=== PATIENT | female | born 1985 | race Caucasian/White ===

== ENCOUNTER 2016-04-05 08:46 | Emergency (ER) | payer OTHER ==
[~2016-04-05 08:46] MED LIST: AMBI10TA; XANA0.5T; Zoloft
--- NOTE | 2016-04-05 10:12 | EDDOCDS ---
Nurse's Notes [facility] Name: Gladys Griffiths Age: 30 yrs Sex: Female : 1985 Arrival Date: 04/05/2016 Time: 08:46 Bed PR2 Private MD: Diagnosis: Chest pain, unspecified Presentation: 04/05 09:03 Presenting complaint: Patient states: SOB and chest pain intermittent over the past mlb1 year. Aspirin was not taken prior to arrival. Adult Sepsis Screening: The patient does not have new or worsening altered mentation. Patient's respiratory rate is less than 22. Systolic blood pressure is greater than 100. Patient has a qSOFA score of 0- Negative Sepsis Screen. Suicide/Homicide risk assessment- the patient denies having any suicidal and/or homicidal ideations and does not present with any other emotional, behavioral or mental health complaints. Status: The patient is a dependent. Transition of care: patient was not received from another setting of care. 09:03 Acuity: TERE Level 3 mlb1 09:03 Method Of Arrival: Walkin/Carried/Asstd mlb1 Triage Assessment: 09:10 General: Appears in no apparent distress, Behavior is appropriate for age, cooperative. mlb1 Pain: Location: anterior aspect of left upper chest Pain currently is 5 out of 10 on a pain scale. Pt Declines HIV testing. 10:10 Cardiovascular: Chest pain is denied is described as radiates Does not radiate. mlb1 episodes are intermittent began. 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 Singulair 10 mg Oral tab 1 tab once daily 2. aspirin 81 mg Oral tab 1 tab once daily 3. Valium 5 mg Oral tab daily as needed 4. albuterol sulfate 90 mcg/actuation Inhl HFAA 2 puffs every 4 hours 5. Flovent Diskus 250 mcg/actuation inhalation dsdv 1 puff 2 times per day - PMHx: Asthma; PTSD; - PSHx: ; ganglion cyst removal; vericose veins; - Social history: Smoking status: Patient states was never smoker of tobacco. No barriers to communication noted, The patient speaks fluent Cymro, Speaks appropriately for age. - Family history: Not pertinent. - : The pt / caregiver states he / she is not on anticoagulants. Home medication list is obtained from the patient. - Exposure Risk Screening:: None identified. Screenin:10 Screening information is obtained from the patient. Fall risk: No risks identified. mlb1 Assistance ADL's: requires no assistance with activities of daily living. Abuse/DV Screen: The patient / caregiver reports he/she is: not in a situation that causes fear, pain or injury. Nutritional screening: No deficits noted. Advance Directives: Currently, there is no health care proxy. home support is adequate. Assessment: 10:08 General: Appears in no apparent distress, comfortable, Behavior is appropriate for age, mlb1 cooperative. Pain: Location: anterior aspect of left upper chest Pain currently is 5 out of 10 on a pain scale. Respiratory: No deficits noted. GI: No deficits noted. Derm: Skin is pink, warm & dry. normal. 10:10 Cardiovascular: Rhythm is sinus bradycardia No ectopy. [facility] Vital Signs: 09:10 BP 122 / 71; Pulse 70; Resp 16; Temp 98.4(T); Pulse Ox 100% on R/A; Weight 61.23 kg mlb1 (R); Height 5 ft. 11 in. (180.34 cm) (R); Pain 5/10; 09:10 Body Mass Index 18.83 (61.23 kg, 180.34 cm) b1 ED Course: 08:49 Patient visited by Kelsey Sanchez. jls1 08:49 Patient moved to Waiting jls1 09:03 Patient visited by Timothy Fleming RN. mlb1 09:05 Triage Initiated mlb1 09:11 Patient moved to Triage 1 mlb1 09:16 Zeyad Toth PA-C is PHCP. cc10 09:16 Anil Bailey MD is Attending Physician. cc10 09:16 Patient visited by Zeyad Toth PA-C. cc10 09:16 Patient visited by Zeyad Toth PA-C. cc10 09:23 Patient moved to PR2 / jrd 09:39 Patient visited by Thierry Astudillo PCA. jrd 09:39 EKG done. (by ED staff). Reviewed by Zeyad Toth PA-C. jrd 09:57 Gomez Renteria is Referral Physician. cc10 10:10 No IV's were initiated during this patient's visit. No procedures done that require mlb1 assistance. 10:11 Patient visited by Timothy Fleming RN. mlb1 10:11 The patient / caregiver is instructed regarding the plan of care and ED course. Cardiac mlb1 monitoring not applicable on this patient. Point of Care Testing: Urine : 09:39 hCG Reading: Negative; Control Reading: Positive; jrd Ranges: Order Results: There are currently no results for this order. Outcome: 09:57 Discharge ordered by Provider. cc10 10:11 Discharge Assessment: Patient awake, alert and oriented x 3. No cognitive and/or mlb1 functional deficits noted. Patient verbalized understanding of disposition instructions. patient administered narcotics - no. The following High Risk Discharge criteria are identified: None. Discharged to home ambulatory. Condition: good. Discharge instructions given to patient, Instructed on discharge instructions, follow up and referral plans. Demonstrated understanding of instructions, medications, Pt was receptive of discharge instructions/ teaching. No special radiology studies were completed. Property sent home with patient. 10:11 Patient left the ED. mlb1 Signatures: Timothy Fleming, RN RN mlb1 Zeyad Toth, PA-C PA-C cc10 Thierry Astudillo, DEAN OF EDUCATION DEAN OF EDUCATION Kelsey Baldwins1 MTDD
--- NOTE | 2016-04-05 10:12 | EDDOCDS ---
Physician Documentation [facility] Name: Gladys Griffiths Age: 30 yrs Sex: Female : 1985 Arrival Date: 04/05/2016 Time: 08:46 Bed PR Private MD: Disposition: 04/05/16 09:57 Discharged to Home/Self Care. Impression: Chest pain, unspecified. - Condition is Stable. - Discharge Instructions: Nonspecific Chest Pain. - Medication Reconciliation form. - Follow up: Emergency Department; When: As needed; Reason: Worsening of conditions. Follow up: Gomez Renteria; When: Call to arrange an appointment; Reason: Wound/Symptom Recheck, Recheck today's complaints, Continuance of care. - Problem is chronic. - Symptoms are unchanged. Historical: - Allergies: PENICILLINS; Ciprofloxacin; Cleocin; Levaquin; Keflex; Erythromycin; hydrocodone; Prednisone; - Home Meds: 1. Singulair 10 mg Oral tab 1 tab once daily 2. aspirin 81 mg Oral tab 1 tab once daily 3. Valium 5 mg Oral tab daily as needed 4. albuterol sulfate 90 mcg/actuation Inhl HFAA 2 puffs every 4 hours 5. Flovent Diskus 250 mcg/actuation inhalation dsdv 1 puff 2 times per day - PMHx: Asthma; PTSD; - PSHx: ; ganglion cyst removal; vericose veins; - Social history: Smoking status: Patient states was never smoker of tobacco. No barriers to communication noted, The patient speaks fluent Macedonian, Speaks appropriately for age. - Family history: Not pertinent. - : The pt / caregiver states he / she is not on anticoagulants. Home medication list is obtained from the patient. - Exposure Risk Screening:: None identified. 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 11 in. (180.34 cm) (R); Pain 5/10; 09:10 Body Mass Index 18.83 (61.23 kg, 180.34 cm) mlb1 MDM: 09:23 UCG by Nursing ordered. cc10 09:24 ECG WITH READING ER PHYS+CARDIAG ordered. EDMS 09:24 Chest, 2 View (pa\E\lat): ucg pending Ordered. EDMS Point of Care Testing: Urine : 09:39 hCG Reading: Negative; Control Reading: Positive; jrd Ranges: Signatures: Dispatcher [employer] Timothy Garcia RN RN mlb1 Zeyad Toth, PA-C PA-C cc10 MTDD
--- NOTE | 2016-04-06 08:22 | ECGEPIP ---
Stationary ECG Study [facility] - ED Test Date: 2016-04-05 Pat Name: MICHAEL SMITH Department: Room: - Gender: F Family Medicine Physician: juan : 1985 Requested By: Zeyad Toth PA-C Order Number: [id number] Reading MD: Anil Bailey Measurements Intervals [place] Rate: 59 P: 45 [place]: 132 QRS: 64 QRSD: 84 T: 54 QT: 396 QTc: 394 Interpretive Statements SINUS BRADYCARDIA INC. RBBB BENIGN EARLY REPOLARIZATION NO PRIORS Electronically Signed On 04-06-2016 8:21:55 EST by Anil Bailey
--- NOTE | 2016-04-07 11:12 | EDDOCDS ---
Nurse's Notes [facility] Name: Michael Griffiths Age: 30 yrs Sex: Female : 1985 Arrival Date: 04/05/2016 Time: 08:46 Bed PR2 Private MD: Diagnosis: Chest pain, unspecified Presentation: 04/05 09:03 Presenting complaint: Patient states: SOB and chest pain intermittent over the past mlb1 year. Aspirin was not taken prior to arrival. Adult Sepsis Screening: The patient does not have new or worsening altered mentation. Patient's respiratory rate is less than 22. Systolic blood pressure is greater than 100. Patient has a qSOFA score of 0- Negative Sepsis Screen. Suicide/Homicide risk assessment- the patient denies having any suicidal and/or homicidal ideations and does not present with any other emotional, behavioral or mental health complaints. Status: The patient is a dependent. Transition of care: patient was not received from another setting of care. 09:03 Acuity: TERE Level 3 mlb1 09:03 Method Of Arrival: Walkin/Carried/Asstd mlb1 Triage Assessment: 09:10 General: Appears in no apparent distress, Behavior is appropriate for age, cooperative. mlb1 Pain: Location: anterior aspect of left upper chest Pain currently is 5 out of 10 on a pain scale. Pt Declines HIV testing. 10:10 Cardiovascular: Chest pain is denied is described as radiates Does not radiate. mlb1 episodes are intermittent began. 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 Singulair 10 mg Oral tab 1 tab once daily 2. aspirin 81 mg Oral tab 1 tab once daily 3. Valium 5 mg Oral tab daily as needed 4. albuterol sulfate 90 mcg/actuation Inhl HFAA 2 puffs every 4 hours 5. Flovent Diskus 250 mcg/actuation inhalation dsdv 1 puff 2 times per day - PMHx: Asthma; PTSD; - PSHx: ; ganglion cyst removal; vericose veins; - Social history: Smoking status: Patient states was never smoker of tobacco. No barriers to communication noted, The patient speaks fluent Dutch, Speaks appropriately for age. - Family history: Not pertinent. - : The pt / caregiver states he / she is not on anticoagulants. Home medication list is obtained from the patient. - Exposure Risk Screening:: None identified. Screenin:10 Screening information is obtained from the patient. Fall risk: No risks identified. mlb1 Assistance ADL's: requires no assistance with activities of daily living. Abuse/DV Screen: The patient / caregiver reports he/she is: not in a situation that causes fear, pain or injury. Nutritional screening: No deficits noted. Advance Directives: Currently, there is no health care proxy. home support is adequate. Assessment: 10:08 General: Appears in no apparent distress, comfortable, Behavior is appropriate for age, mlb1 cooperative. Pain: Location: anterior aspect of left upper chest Pain currently is 5 out of 10 on a pain scale. Respiratory: No deficits noted. GI: No deficits noted. Derm: Skin is pink, warm & dry. normal. 10:10 Cardiovascular: Rhythm is sinus bradycardia No ectopy. [facility] Vital Signs: 09:10 BP 122 / 71; Pulse 70; Resp 16; Temp 98.4(T); Pulse Ox 100% on R/A; Weight 61.23 kg mlb1 (R); Height 5 ft. 11 in. (180.34 cm) (R); Pain 5/10; 09:10 Body Mass Index 18.83 (61.23 kg, 180.34 cm) b1 ED Course: 08:49 Patient visited by Kelsey Sanchez. jls1 08:49 Patient moved to Waiting jls1 09:03 Patient visited by Timothy Fleming RN. mlb1 09:05 Triage Initiated mlb1 09:11 Patient moved to Triage 1 mlb1 09:16 Zeyad Toth PA-C is PHCP. cc10 09:16 Anil Bailey MD is Attending Physician. cc10 09:16 Patient visited by Zeyad Toth PA-C. cc10 09:16 Patient visited by Zeyad Toth PA-C. cc10 09:23 Patient moved to PR2 / jrd 09:39 Patient visited by Thierry Astudillo PCA. jrd 09:39 EKG done. (by ED staff). Reviewed by Zeyad Toth PA-C. jrd 09:57 Gomez Renteria is Referral Physician. cc10 10:10 No IV's were initiated during this patient's visit. No procedures done that require mlb1 assistance. 10:11 Patient visited by Timothy Fleming RN. mlb1 10:11 The patient / caregiver is instructed regarding the plan of care and ED course. Cardiac mlb1 monitoring not applicable on this patient. 13:56 T-Sheet-- Draft Copy was scanned into [employer] and attached to record. 13:56 ECG/EKG was scanned into [employer] [employer] and attached to record. 04/06 09:00 EKG-ADULT Returned. 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 RBBB; BENIGN EARLY REPOLARIZATION; NO PRIORS; Electronically Signed On 04-06-2016 8:21:55 EST by Anil Bailey; Outcome: 09:57 Discharge ordered by Provider. cc10 10:11 Discharge Assessment: Patient awake, alert and oriented x 3. No cognitive and/or mlb1 functional deficits noted. Patient verbalized understanding of disposition instructions. patient administered narcotics - no. The following High Risk Discharge criteria are identified: None. Discharged to home ambulatory. Condition: good. Discharge instructions given to patient, Instructed on discharge instructions, follow up and referral plans. Demonstrated understanding of instructions, medications, Pt was receptive of discharge instructions/ teaching. No special radiology studies were completed. Property sent home with patient. 10:11 Patient left the ED. mlb1 Signatures: [facility]patcher [facility] Velia Arthur, Gerald Reg Timothy Rae, RN RN mlb1 Zeyad Toth, PA-C PA-C cc10 Thierry Astudillo, GENERAL FARM MANAGER GENERAL FARM MANAGER jrd Kelsey Sanchez jls1 Chart Complete MTDD
--- NOTE | 2016-04-07 11:12 | EDDOCDS ---
Physician Documentation [facility] Name: Gladys Griffiths Age: 30 yrs Sex: Female : 1985 Arrival Date: 04/05/2016 Time: 08:46 Bed PR Private MD: Disposition: 04/05/16 09:57 Discharged to Home/Self Care. Impression: Chest pain, unspecified. - Condition is Stable. - Discharge Instructions: Nonspecific Chest Pain. - Medication Reconciliation form. - Follow up: Emergency Department; When: As needed; Reason: Worsening of conditions. Follow up: Gomez Renteria; When: Call to arrange an appointment; Reason: Wound/Symptom Recheck, Recheck today's complaints, Continuance of care. - Problem is chronic. - Symptoms are unchanged. Historical: - Allergies: PENICILLINS; Ciprofloxacin; Cleocin; Levaquin; Keflex; Erythromycin; hydrocodone; Prednisone; - Home Meds: 1. Singulair 10 mg Oral tab 1 tab once daily 2. aspirin 81 mg Oral tab 1 tab once daily 3. Valium 5 mg Oral tab daily as needed 4. albuterol sulfate 90 mcg/actuation Inhl HFAA 2 puffs every 4 hours 5. Flovent Diskus 250 mcg/actuation inhalation dsdv 1 puff 2 times per day - PMHx: Asthma; PTSD; - PSHx: ; ganglion cyst removal; vericose veins; - Social history: Smoking status: Patient states was never smoker of tobacco. No barriers to communication noted, The patient speaks fluent Japanese, Speaks appropriately for age. - Family history: Not pertinent. - : The pt / caregiver states he / she is not on anticoagulants. Home medication list is obtained from the patient. - Exposure Risk Screening:: None identified. 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 11 in. (180.34 cm) (R); Pain 5/10; 09:10 Body Mass Index 18.83 (61.23 kg, 180.34 cm) mlb1 MDM: 09:23 UCG by Nursing ordered. cc10 09:24 ECG WITH READING ER PHYS+CARDIAG ordered. EDMS 09:24 Chest, 2 View (pa\E\lat): ucg pending Ordered. EDMS 13:56 T-Sheet-- Draft Copy was scanned into [employer] and attached to record. gb 13:56 ECG/EKG was scanned into [employer] and attached to record. gb Point of Care Testing: Urine : 09:39 hCG Reading: Negative; Control Reading: Positive; jrd Ranges: Signatures: Dispatcher [employer] EDMS Velia Arthur, Reg Reg gb Timothy Fleming RN RN mlb1 Zeyad Toth, PA-C PA-C cc10 The chart was reviewed and I authenticate all verbal orders and agree with the evaluation and treatment provided.Attachments: 13:56 T-Sheet-- Draft Copy gb 13:56 ECG/EKG gb Chart Complete MTDD
--- NOTE | 2016-04-07 11:12 | EDDOCDS ---
Physician Documentation [facility] Name: Gladys Griffiths Age: 30 yrs Sex: Female : 1985 Arrival Date: 04/05/2016 Time: 08:46 Bed PR Private MD: Disposition: 04/05/16 09:57 Discharged to Home/Self Care. Impression: Chest pain, unspecified. - Condition is Stable. - Discharge Instructions: Nonspecific Chest Pain. - Medication Reconciliation form. - Follow up: Emergency Department; When: As needed; Reason: Worsening of conditions. Follow up: Gomez Renteria; When: Call to arrange an appointment; Reason: Wound/Symptom Recheck, Recheck today's complaints, Continuance of care. - Problem is chronic. - Symptoms are unchanged. Historical: - Allergies: PENICILLINS; Ciprofloxacin; Cleocin; Levaquin; Keflex; Erythromycin; hydrocodone; Prednisone; - Home Meds: 1. Singulair 10 mg Oral tab 1 tab once daily 2. aspirin 81 mg Oral tab 1 tab once daily 3. Valium 5 mg Oral tab daily as needed 4. albuterol sulfate 90 mcg/actuation Inhl HFAA 2 puffs every 4 hours 5. Flovent Diskus 250 mcg/actuation inhalation dsdv 1 puff 2 times per day - PMHx: Asthma; PTSD; - PSHx: ; ganglion cyst removal; vericose veins; - Social history: Smoking status: Patient states was never smoker of tobacco. No barriers to communication noted, The patient speaks fluent Uzbek, Speaks appropriately for age. - Family history: Not pertinent. - : The pt / caregiver states he / she is not on anticoagulants. Home medication list is obtained from the patient. - Exposure Risk Screening:: None identified. 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 11 in. (180.34 cm) (R); Pain 5/10; 09:10 Body Mass Index 18.83 (61.23 kg, 180.34 cm) mlb1 MDM: 09:23 UCG by Nursing ordered. cc10 09:24 ECG WITH READING ER PHYS+CARDIAG ordered. EDMS 09:24 Chest, 2 View (pa\E\lat): ucg pending Ordered. EDMS 13:56 T-Sheet-- Draft Copy was scanned into [employer] and attached to record. gb 13:56 ECG/EKG was scanned into [employer] and attached to record. gb Point of Care Testing: Urine : 09:39 hCG Reading: Negative; Control Reading: Positive; jrd Ranges: Signatures: Dispatcher [employer] EDMS Velia Arthur, Reg Reg gb Timothy Fleming RN RN mlb1 Zeyad Toth, PA-C PA-C cc10 The chart was reviewed and I authenticate all verbal orders and agree with the evaluation and treatment provided.Attachments: 13:56 T-Sheet-- Draft Copy gb 13:56 ECG/EKG gb Chart Complete MTDD
--- NOTE | 2016-04-07 12:47 | REP ---
PA and lateral chest 04/05/2016 Indication: Chest pain. Comparison: None Findings: The cardiomediastinal silhouette is normal. There is a 3 mm smooth nodular opacity within the left lower lobe most compatible with calcified granuloma and/or small pulmonary vessel branch on end. Lungs are otherwise clear. Bones and soft tissues are within normal limits Impression 3 mm smooth nodular opacity in the left lower lobe most compatible with calcified granuloma and/or small pulmonary vessel branch on end. Consider comparison with any previous prior chest radiographs if and when available; or followup PA lateral chest in 12 months. Signed by Nunu Stevenson MD 04/07/2016 12:39 P
--- NOTE | 2016-04-07 14:13 | EDDOCDS ---
Nurse's Notes [facility] Name: Michael Griffiths Age: 30 yrs Sex: Female : 1985 Arrival Date: 04/05/2016 Time: 08:46 Bed PR2 Private MD: Diagnosis: Chest pain, unspecified Presentation: 04/05 09:03 Presenting complaint: Patient states: SOB and chest pain intermittent over the past mlb1 year. Aspirin was not taken prior to arrival. Adult Sepsis Screening: The patient does not have new or worsening altered mentation. Patient's respiratory rate is less than 22. Systolic blood pressure is greater than 100. Patient has a qSOFA score of 0- Negative Sepsis Screen. Suicide/Homicide risk assessment- the patient denies having any suicidal and/or homicidal ideations and does not present with any other emotional, behavioral or mental health complaints. Status: The patient is a dependent. Transition of care: patient was not received from another setting of care. 09:03 Acuity: TERE Level 3 mlb1 09:03 Method Of Arrival: Walkin/Carried/Asstd mlb1 Triage Assessment: 09:10 General: Appears in no apparent distress, Behavior is appropriate for age, cooperative. mlb1 Pain: Location: anterior aspect of left upper chest Pain currently is 5 out of 10 on a pain scale. Pt Declines HIV testing. 10:10 Cardiovascular: Chest pain is denied is described as radiates Does not radiate. mlb1 episodes are intermittent began. 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 Singulair 10 mg Oral tab 1 tab once daily 2. aspirin 81 mg Oral tab 1 tab once daily 3. Valium 5 mg Oral tab daily as needed 4. albuterol sulfate 90 mcg/actuation Inhl HFAA 2 puffs every 4 hours 5. Flovent Diskus 250 mcg/actuation inhalation dsdv 1 puff 2 times per day - PMHx: Asthma; PTSD; - PSHx: ; ganglion cyst removal; vericose veins; - Social history: Smoking status: Patient states was never smoker of tobacco. No barriers to communication noted, The patient speaks fluent Sierra Leonean, Speaks appropriately for age. - Family history: Not pertinent. - : The pt / caregiver states he / she is not on anticoagulants. Home medication list is obtained from the patient. - Exposure Risk Screening:: None identified. Screenin:10 Screening information is obtained from the patient. Fall risk: No risks identified. mlb1 Assistance ADL's: requires no assistance with activities of daily living. Abuse/DV Screen: The patient / caregiver reports he/she is: not in a situation that causes fear, pain or injury. Nutritional screening: No deficits noted. Advance Directives: Currently, there is no health care proxy. home support is adequate. Assessment: 10:08 General: Appears in no apparent distress, comfortable, Behavior is appropriate for age, mlb1 cooperative. Pain: Location: anterior aspect of left upper chest Pain currently is 5 out of 10 on a pain scale. Respiratory: No deficits noted. GI: No deficits noted. Derm: Skin is pink, warm & dry. normal. 10:10 Cardiovascular: Rhythm is sinus bradycardia No ectopy. [facility] Vital Signs: 09:10 BP 122 / 71; Pulse 70; Resp 16; Temp 98.4(T); Pulse Ox 100% on R/A; Weight 61.23 kg mlb1 (R); Height 5 ft. 11 in. (180.34 cm) (R); Pain 5/10; 09:10 Body Mass Index 18.83 (61.23 kg, 180.34 cm) b1 ED Course: 08:49 Patient visited by Kelsey Sanchez. jls1 08:49 Patient moved to Waiting jls1 09:03 Patient visited by Timothy Fleming RN. mlb1 09:05 Triage Initiated mlb1 09:11 Patient moved to Triage 1 mlb1 09:16 Zeyad Toth PA-C is PHCP. cc10 09:16 Anil Bailey MD is Attending Physician. cc10 09:16 Patient visited by Zeyad Toth PA-C. cc10 09:16 Patient visited by Zeyad Toth PA-C. cc10 09:23 Patient moved to PR2 / jrd 09:39 Patient visited by Thierry Astudillo PCA. jrd 09:39 EKG done. (by ED staff). Reviewed by Zeyad Toth PA-C. jrd 09:57 Gomez Renteria is Referral Physician. cc10 10:10 No IV's were initiated during this patient's visit. No procedures done that require mlb1 assistance. 10:11 Patient visited by Timothy Fleming RN. mlb1 10:11 The patient / caregiver is instructed regarding the plan of care and ED course. Cardiac mlb1 monitoring not applicable on this patient. 13:56 T-Sheet-- Draft Copy was scanned into [employer] and attached to record. gb 13:56 ECG/EKG was scanned into [employer] and attached to record. gb 04/06 09:00 EKG-ADULT Returned. 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 RBBB; BENIGN EARLY REPOLARIZATION; NO PRIORS; Electronically Signed On 04-06-2016 8:21:55 EST by Anil Bailey; Radiology Order: Chest, 2 View (pa\E\lat): ucg pending Test: Chest, 2 View (pa\E\lat): ucg pending REASON FOR EXAMINATION: Chest Pain; PA and lateral chest 04/05/2016; ; Indication: Chest pain.; ; Comparison: None; ; Findings: The cardiomediastinal silhouette is normal. There is a 3 mm smooth; nodular opacity within the left lower lobe most compatible with calcified; granuloma and/or small pulmonary vessel branch on end. Lungs are otherwise; clear. Bones and soft tissues are within normal limits; ; Impression 3 mm smooth nodular opacity in the left lower lobe most compatible; with calcified granuloma and/or small pulmonary vessel branch on end.; ; Consider comparison with any previous prior chest radiographs if and when; available; or followup PA lateral chest in 12 months.; ; ; Signed by; Nunu Stevenson MD 04/07/2016 12:39 P; Outcome: 09:57 Discharge ordered by Provider. cc10 10:11 Discharge Assessment: Patient awake, alert and oriented x 3. No cognitive and/or mlb1 functional deficits noted. Patient verbalized understanding of disposition instructions. patient administered narcotics - no. The following High Risk Discharge criteria are identified: None. Discharged to home ambulatory. Condition: good. Discharge instructions given to patient, Instructed on discharge instructions, follow up and referral plans. Demonstrated understanding of instructions, medications, Pt was receptive of discharge instructions/ teaching. No special radiology studies were completed. Property sent home with patient. 10:11 Patient left the ED. mlb1 Signatures: Dispatcher [employer] EDMS Velia Arthur, Reg Reg robert Fleming, Timothy Layton RN RN mlb1 Zeyad Toth, PARenatoC PA-C cc10 Thierry Astudillo, Kelsey Reyes jls1 [facility]
--- NOTE | 2016-04-07 14:13 | EDDOCDS ---
Physician Documentation [facility] Name: Gladys Griffiths Age: 30 yrs Sex: Female : 1985 Arrival Date: 04/05/2016 Time: 08:46 Bed PR Private MD: Disposition: 04/05/16 09:57 Discharged to Home/Self Care. Impression: Chest pain, unspecified. - Condition is Stable. - Discharge Instructions: Nonspecific Chest Pain. - Medication Reconciliation form. - Follow up: Emergency Department; When: As needed; Reason: Worsening of conditions. Follow up: Gomez Renteria; When: Call to arrange an appointment; Reason: Wound/Symptom Recheck, Recheck today's complaints, Continuance of care. - Problem is chronic. - Symptoms are unchanged. Historical: - Allergies: PENICILLINS; Ciprofloxacin; Cleocin; Levaquin; Keflex; Erythromycin; hydrocodone; Prednisone; - Home Meds: 1. Singulair 10 mg Oral tab 1 tab once daily 2. aspirin 81 mg Oral tab 1 tab once daily 3. Valium 5 mg Oral tab daily as needed 4. albuterol sulfate 90 mcg/actuation Inhl HFAA 2 puffs every 4 hours 5. Flovent Diskus 250 mcg/actuation inhalation dsdv 1 puff 2 times per day - PMHx: Asthma; PTSD; - PSHx: ; ganglion cyst removal; vericose veins; - Social history: Smoking status: Patient states was never smoker of tobacco. No barriers to communication noted, The patient speaks fluent Bengali, Speaks appropriately for age. - Family history: Not pertinent. - : The pt / caregiver states he / she is not on anticoagulants. Home medication list is obtained from the patient. - Exposure Risk Screening:: None identified. 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 11 in. (180.34 cm) (R); Pain 5/10; 09:10 Body Mass Index 18.83 (61.23 kg, 180.34 cm) mlb1 MDM: 09:23 UCG by Nursing ordered. cc10 09:24 ECG WITH READING ER PHYS+CARDIAG ordered. EDMS 09:24 Chest, 2 View (pa\E\lat): ucg pending Ordered. EDMS 13:56 T-Sheet-- Draft Copy was scanned into [employer] and attached to record. gb 13:56 ECG/EKG was scanned into [employer] and attached to record. gb Point of Care Testing: Urine : 09:39 hCG Reading: Negative; Control Reading: Positive; jrd Ranges: Addendum: 04/07/2016 14:12 Radiology Callback: A certified letter will be sent to the patient / guardian. to pt re ml formal read of cxr for fu mlg. Signatures: Dispatcher [employer] EDOH Cady-Vonnie Naik MD MD ml Velia Artuhr, Reg Reg Timothy Rae RN RN mlZeyad Alex, PA-C PA-C cc10 The chart was reviewed and I authenticate all verbal orders and agree with the evaluation and treatment provided.Attachments: 04/05 13:56 T-Sheet-- Draft Copy gb 13:56 ECG/EKG gb MTDD
--- NOTE | 2016-04-07 14:13 | EDDOCDS ---
Physician Documentation [facility] Name: Gladys Griffiths Age: 30 yrs Sex: Female : 1985 Arrival Date: 04/05/2016 Time: 08:46 Bed PR Private MD: Disposition: 04/05/16 09:57 Discharged to Home/Self Care. Impression: Chest pain, unspecified. - Condition is Stable. - Discharge Instructions: Nonspecific Chest Pain. - Medication Reconciliation form. - Follow up: Emergency Department; When: As needed; Reason: Worsening of conditions. Follow up: Gomez Renteria; When: Call to arrange an appointment; Reason: Wound/Symptom Recheck, Recheck today's complaints, Continuance of care. - Problem is chronic. - Symptoms are unchanged. Historical: - Allergies: PENICILLINS; Ciprofloxacin; Cleocin; Levaquin; Keflex; Erythromycin; hydrocodone; Prednisone; - Home Meds: 1. Singulair 10 mg Oral tab 1 tab once daily 2. aspirin 81 mg Oral tab 1 tab once daily 3. Valium 5 mg Oral tab daily as needed 4. albuterol sulfate 90 mcg/actuation Inhl HFAA 2 puffs every 4 hours 5. Flovent Diskus 250 mcg/actuation inhalation dsdv 1 puff 2 times per day - PMHx: Asthma; PTSD; - PSHx: ; ganglion cyst removal; vericose veins; - Social history: Smoking status: Patient states was never smoker of tobacco. No barriers to communication noted, The patient speaks fluent Latvian, Speaks appropriately for age. - Family history: Not pertinent. - : The pt / caregiver states he / she is not on anticoagulants. Home medication list is obtained from the patient. - Exposure Risk Screening:: None identified. 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 11 in. (180.34 cm) (R); Pain 5/10; 09:10 Body Mass Index 18.83 (61.23 kg, 180.34 cm) mlb1 MDM: 09:23 UCG by Nursing ordered. cc10 09:24 ECG WITH READING ER PHYS+CARDIAG ordered. EDMS 09:24 Chest, 2 View (pa\E\lat): ucg pending Ordered. EDMS 13:56 T-Sheet-- Draft Copy was scanned into [employer] and attached to record. gb 13:56 ECG/EKG was scanned into [employer] and attached to record. gb Point of Care Testing: Urine : 09:39 hCG Reading: Negative; Control Reading: Positive; jrd Ranges: Addendum: 04/07/2016 14:12 Radiology Callback: A certified letter will be sent to the patient / guardian. to pt re ml formal read of cxr for fu mlg. Signatures: Dispatcher [employer] EDNC Cady-Vonnie Naik MD MD ml Velia Arthur, Reg Reg Timothy Rae RN RN mlZeyad Alex, PA-C PA-C cc10 The chart was reviewed and I authenticate all verbal orders and agree with the evaluation and treatment provided.Attachments: 04/05 13:56 T-Sheet-- Draft Copy gb 13:56 ECG/EKG gb MTDD
--- NOTE | 2016-04-07 14:14 | EDDOCDS ---
Physician Documentation [facility] Name: Gladys Griffiths Age: 30 yrs Sex: Female : 1985 Arrival Date: 04/05/2016 Time: 08:46 Bed PR Private MD: Disposition: 04/05/16 09:57 Discharged to Home/Self Care. Impression: Chest pain, unspecified. - Condition is Stable. - Discharge Instructions: Nonspecific Chest Pain. - Medication Reconciliation form. - Follow up: Emergency Department; When: As needed; Reason: Worsening of conditions. Follow up: Gomez Renteria; When: Call to arrange an appointment; Reason: Wound/Symptom Recheck, Recheck today's complaints, Continuance of care. - Problem is chronic. - Symptoms are unchanged. Historical: - Allergies: PENICILLINS; Ciprofloxacin; Cleocin; Levaquin; Keflex; Erythromycin; hydrocodone; Prednisone; - Home Meds: 1. Singulair 10 mg Oral tab 1 tab once daily 2. aspirin 81 mg Oral tab 1 tab once daily 3. Valium 5 mg Oral tab daily as needed 4. albuterol sulfate 90 mcg/actuation Inhl HFAA 2 puffs every 4 hours 5. Flovent Diskus 250 mcg/actuation inhalation dsdv 1 puff 2 times per day - PMHx: Asthma; PTSD; - PSHx: ; ganglion cyst removal; vericose veins; - Social history: Smoking status: Patient states was never smoker of tobacco. No barriers to communication noted, The patient speaks fluent Korean, Speaks appropriately for age. - Family history: Not pertinent. - : The pt / caregiver states he / she is not on anticoagulants. Home medication list is obtained from the patient. - Exposure Risk Screening:: None identified. 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 11 in. (180.34 cm) (R); Pain 5/10; 09:10 Body Mass Index 18.83 (61.23 kg, 180.34 cm) mlb1 MDM: 09:23 UCG by Nursing ordered. cc10 09:24 ECG WITH READING ER PHYS+CARDIAG ordered. EDMS 09:24 Chest, 2 View (pa\E\lat): ucg pending Ordered. EDMS 13:56 T-Sheet-- Draft Copy was scanned into [employer] and attached to record. gb 13:56 ECG/EKG was scanned into [employer] and attached to record. gb Point of Care Testing: Urine : 09:39 hCG Reading: Negative; Control Reading: Positive; jrd Ranges: Addendum: 04/07/2016 14:12 Radiology Callback: A certified letter will be sent to the patient / guardian. to pt re ml formal read of cxr for fu mlg. Signatures: Dispatcher [employer] EDDC Cady-Vonnie Naik MD MD ml Velia Arthur, Reg Reg Timothy Rae RN RN mlZeyad Alex, PA-C PA-C cc10 The chart was reviewed and I authenticate all verbal orders and agree with the evaluation and treatment provided.Attachments: 04/05 13:56 T-Sheet-- Draft Copy gb 13:56 ECG/EKG gb Chart Complete MTDD
--- NOTE | 2016-04-07 14:14 | EDDOCDS ---
Nurse's Notes [facility] Name: Michael Griffiths Age: 30 yrs Sex: Female : 1985 Arrival Date: 04/05/2016 Time: 08:46 Bed PR2 Private MD: Diagnosis: Chest pain, unspecified Presentation: 04/05 09:03 Presenting complaint: Patient states: SOB and chest pain intermittent over the past mlb1 year. Aspirin was not taken prior to arrival. Adult Sepsis Screening: The patient does not have new or worsening altered mentation. Patient's respiratory rate is less than 22. Systolic blood pressure is greater than 100. Patient has a qSOFA score of 0- Negative Sepsis Screen. Suicide/Homicide risk assessment- the patient denies having any suicidal and/or homicidal ideations and does not present with any other emotional, behavioral or mental health complaints. Status: The patient is a dependent. Transition of care: patient was not received from another setting of care. 09:03 Acuity: TERE Level 3 mlb1 09:03 Method Of Arrival: Walkin/Carried/Asstd mlb1 Triage Assessment: 09:10 General: Appears in no apparent distress, Behavior is appropriate for age, cooperative. mlb1 Pain: Location: anterior aspect of left upper chest Pain currently is 5 out of 10 on a pain scale. Pt Declines HIV testing. 10:10 Cardiovascular: Chest pain is denied is described as radiates Does not radiate. mlb1 episodes are intermittent began. 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 Singulair 10 mg Oral tab 1 tab once daily 2. aspirin 81 mg Oral tab 1 tab once daily 3. Valium 5 mg Oral tab daily as needed 4. albuterol sulfate 90 mcg/actuation Inhl HFAA 2 puffs every 4 hours 5. Flovent Diskus 250 mcg/actuation inhalation dsdv 1 puff 2 times per day - PMHx: Asthma; PTSD; - PSHx: ; ganglion cyst removal; vericose veins; - Social history: Smoking status: Patient states was never smoker of tobacco. No barriers to communication noted, The patient speaks fluent Honduran, Speaks appropriately for age. - Family history: Not pertinent. - : The pt / caregiver states he / she is not on anticoagulants. Home medication list is obtained from the patient. - Exposure Risk Screening:: None identified. Screenin:10 Screening information is obtained from the patient. Fall risk: No risks identified. mlb1 Assistance ADL's: requires no assistance with activities of daily living. Abuse/DV Screen: The patient / caregiver reports he/she is: not in a situation that causes fear, pain or injury. Nutritional screening: No deficits noted. Advance Directives: Currently, there is no health care proxy. home support is adequate. Assessment: 10:08 General: Appears in no apparent distress, comfortable, Behavior is appropriate for age, mlb1 cooperative. Pain: Location: anterior aspect of left upper chest Pain currently is 5 out of 10 on a pain scale. Respiratory: No deficits noted. GI: No deficits noted. Derm: Skin is pink, warm & dry. normal. 10:10 Cardiovascular: Rhythm is sinus bradycardia No ectopy. [facility] Vital Signs: 09:10 BP 122 / 71; Pulse 70; Resp 16; Temp 98.4(T); Pulse Ox 100% on R/A; Weight 61.23 kg mlb1 (R); Height 5 ft. 11 in. (180.34 cm) (R); Pain 5/10; 09:10 Body Mass Index 18.83 (61.23 kg, 180.34 cm) b1 ED Course: 08:49 Patient visited by Kelsey Sanchez. jls1 08:49 Patient moved to Waiting jls1 09:03 Patient visited by Timothy Fleming RN. mlb1 09:05 Triage Initiated mlb1 09:11 Patient moved to Triage 1 mlb1 09:16 Zeyad Toth PA-C is PHCP. cc10 09:16 Anil Bailey MD is Attending Physician. cc10 09:16 Patient visited by Zeyad Toth PA-C. cc10 09:16 Patient visited by Zeyad Toth PA-C. cc10 09:23 Patient moved to PR2 / jrd 09:39 Patient visited by Thierry Astudillo PCA. jrd 09:39 EKG done. (by ED staff). Reviewed by Zeyad Toth PA-C. jrd 09:57 Gomez Renteria is Referral Physician. cc10 10:10 No IV's were initiated during this patient's visit. No procedures done that require mlb1 assistance. 10:11 Patient visited by Timothy Fleming RN. mlb1 10:11 The patient / caregiver is instructed regarding the plan of care and ED course. Cardiac mlb1 monitoring not applicable on this patient. 13:56 T-Sheet-- Draft Copy was scanned into [employer] and attached to record. gb 13:56 ECG/EKG was scanned into [employer] and attached to record. gb 04/06 09:00 EKG-ADULT Returned. 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 RBBB; BENIGN EARLY REPOLARIZATION; NO PRIORS; Electronically Signed On 04-06-2016 8:21:55 EST by Anil Bailey; Radiology Order: Chest, 2 View (pa\E\lat): ucg pending Test: Chest, 2 View (pa\E\lat): ucg pending REASON FOR EXAMINATION: Chest Pain; PA and lateral chest 04/05/2016; ; Indication: Chest pain.; ; Comparison: None; ; Findings: The cardiomediastinal silhouette is normal. There is a 3 mm smooth; nodular opacity within the left lower lobe most compatible with calcified; granuloma and/or small pulmonary vessel branch on end. Lungs are otherwise; clear. Bones and soft tissues are within normal limits; ; Impression 3 mm smooth nodular opacity in the left lower lobe most compatible; with calcified granuloma and/or small pulmonary vessel branch on end.; ; Consider comparison with any previous prior chest radiographs if and when; available; or followup PA lateral chest in 12 months.; ; ; Signed by; Nunu Stevenson MD 04/07/2016 12:39 P; Outcome: 09:57 Discharge ordered by Provider. cc10 10:11 Discharge Assessment: Patient awake, alert and oriented x 3. No cognitive and/or mlb1 functional deficits noted. Patient verbalized understanding of disposition instructions. patient administered narcotics - no. The following High Risk Discharge criteria are identified: None. Discharged to home ambulatory. Condition: good. Discharge instructions given to patient, Instructed on discharge instructions, follow up and referral plans. Demonstrated understanding of instructions, medications, Pt was receptive of discharge instructions/ teaching. No special radiology studies were completed. Property sent home with patient. 10:11 Patient left the ED. mlb1 Signatures: Dispatcher [employer] EDMS Velia Arthur, Gerald Reg robert Fleming, Timothy Layton RN RN mlb1 Zeyad Toth, PA-C PA-C cc10 Thierry Astudillo, Kelsey Reyes jls1 Chart Complete TYESHA
--- NOTE | 2016-04-07 14:14 | EDDOCDS ---
Physician Documentation [facility] Name: Gladys Griffiths Age: 30 yrs Sex: Female : 1985 Arrival Date: 04/05/2016 Time: 08:46 Bed PR Private MD: Disposition: 04/05/16 09:57 Discharged to Home/Self Care. Impression: Chest pain, unspecified. - Condition is Stable. - Discharge Instructions: Nonspecific Chest Pain. - Medication Reconciliation form. - Follow up: Emergency Department; When: As needed; Reason: Worsening of conditions. Follow up: [facility]; When: Call to arrange an appointment; Reason: Wound/Symptom Recheck, Recheck today's complaints, Continuance of care. - Problem is chronic. - Symptoms are unchanged. Historical: - Allergies: PENICILLINS; Ciprofloxacin; Cleocin; Levaquin; Keflex; Erythromycin; hydrocodone; Prednisone; - Home Meds: 1. Singulair 10 mg Oral tab 1 tab once daily 2. aspirin 81 mg Oral tab 1 tab once daily 3. Valium 5 mg Oral tab daily as needed 4. albuterol sulfate 90 mcg/actuation Inhl HFAA 2 puffs every 4 hours 5. Flovent Diskus 250 mcg/actuation inhalation dsdv 1 puff 2 times per day - PMHx: Asthma; PTSD; - PSHx: ; ganglion cyst removal; vericose veins; - Social history: Smoking status: Patient states was never smoker of tobacco. No barriers to communication noted, The patient speaks fluent Armenian, Speaks appropriately for age. - Family history: Not pertinent. - : The pt / caregiver states he / she is not on anticoagulants. Home medication list is obtained from the patient. - Exposure Risk Screening:: None identified. 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 11 in. (180.34 cm) (R); Pain 5/10; 09:10 Body Mass Index 18.83 (61.23 kg, 180.34 cm) mlb1 MDM: 09:23 UCG by Nursing ordered. cc10 09:24 ECG WITH READING ER PHYS+CARDIAG ordered. EDMS 09:24 Chest, 2 View (pa\E\lat): ucg pending Ordered. EDMS 13:56 T-Sheet-- Draft Copy was scanned into [employer] and attached to record. gb 13:56 ECG/EKG was scanned into [employer] and attached to record. gb Point of Care Testing: Urine : 09:39 hCG Reading: Negative; Control Reading: Positive; jrd Ranges: Addendum: 04/07/2016 14:12 Radiology Callback: A certified letter will be sent to the patient / guardian. to pt re ml formal read of cxr for fu mlg. Signatures: Dispatcher [employer] EDKS Cady-Vonnie Naik MD MD ml Velia Arthur, Reg Reg Timothy Rae RN RN mlZeyad Alex, PA-C PA-C cc10 The chart was reviewed and I authenticate all verbal orders and agree with the evaluation and treatment provided.Attachments: 04/05 13:56 T-Sheet-- Draft Copy gb 13:56 ECG/EKG gb Chart Complete MTDD
== END 2016-04-05 10:11 | disposition home or self-care (01) ==
LOC: M ED 08:46
DX: R07.89 Other chest pain (principal); R06.02 Shortness of breath; J45.909 Unspecified asthma, uncomplicated; F43.21 Adjustment disorder with depressed mood; Z79.899 Other long term (current) drug therapy; Z79.82 Long term (current) use of aspirin; Z88.0 Allergy status to penicillin; Z88.1 Allergy status to other antibiotic agents; Z88.5 Allergy status to narcotic agent; Z88.8 Allergy status to other drugs, medicaments and biological substances

== ENCOUNTER → 2016-07-13 | Outpatient (CLI) | payer OTHER ==
[~2016-07-13] MED LIST changes: +E-Z-GAS II EFFERVESCENT PACKET (SODIUM BICARB./CITRIC ACID/SIMETHICONE) As Ordered ONE; +E-Z-HD 98% w/w 340GM SUSP BTL As Ordered ONE; +E-Z-PAQUE 96% w/w SUSP 176GM BTL As Ordered ONE
--- NOTE | 2016-07-14 05:55 | REP ---
ESOPHAGRAM: The procedure was performed under the direct supervision of Dr. Naik. The images were reviewed with Dr. Naik. 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 The superior mediastinal structures are midline. The heart size is within normal limits. The lungs are clear. Liquid barium and gas producing granules were given in the erect position as well as liquid barium in the probe oblique positions in order to perform a double contrast esophagram examination. The oral and pharyngeal stages of deglutition are unremarkable. Esophageal transport is prompt and efficient and there is no esophagitis, stricture, mucosal ring or hiatal hernia. The patient was unable to drink the barium in the prone oblique positions. There is gastroesophageal reflux demonstrated to above the level of the laure. The GE junction is patulous. IMPRESSION: The GE junction is patulous and there is gastroesophageal reflux demonstrated to above the level of the laure. Otherwise unremarkable double contrast esophagram examination. 25 seconds of fluoroscopy time was utilized for this procedure. Reviewed by FLAQUITA Roberts 07/14/2016 05:32 PEdited and Signed by Josh Naik MD 07/17/2016 05:34 P
== END ==
LOC: M RAD 09:50
PROVIDERS: ATTEND Specialist
DX: R13.13 Dysphagia, pharyngeal phase (principal); K21.9 Gastro-esophageal reflux disease without esophagitis